=== PATIENT | male | born 1985 | race Caucasian/White ===

== ENCOUNTER 2017-03-09 12:41 | Emergency (ER) | payer MEDICAID ==
--- NOTE | 2017-03-09 13:59 | ED Physician Chart ---
Chief Complaint/HPI - Patient Information Date Seen:: 03/09/17 Time Seen:: 13:00 Chief Complaint:: left wrist pain History of Present Illness:: Present illness:: The patient states that he was in a previous state of health until one week ago when he helped a friend do yard work. There is no history of trauma insect sting or other acute problem until he woke up the next day with soreness in his left wrist. 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 Patient is in the emergency room today for evaluation just to find out what's going on. Patient has no other joint involvement, pertinent other medical history, no fever or chills or other pertinent review of systems. Allergies:: Allergies Allergy/AdvReac Type Severity Reaction Status Date / Time No Known Allergies Allergy Verified 03/09/17 12:55 Vitals:: Vital Signs - 8 hr 03/09/17 03/09/17 12:45 13:16 Temp 98.1 F 98.1 F HR 89 89 RR 16 16 BP 148/84 148/84 O2 Sat % 98 98 Review:: Nurse's Note Reviewed Review of Systems - Review of Systems General/Constitutional: No fever Other: Review of systems is otherwise unremarkable for that mentioned in the history of present illness. Past Medical History - Past Medical History Obtainable: Yes Past Medical History: No significant medical hx Family History: Heart disease Social History: Non Smoker, No Alcohol, No Drug Use, Single, Employed Surgical History: None Psychiatricy History: None Medication: None, Reviewed (nsaid) Family Medical History - Family Member Grandfather Hx Family Coronary Artery Disease: Yes Other Medical History: heart disease Physical Exam - Physical Examination General/Constitutional: Awake, Well-developed, well-nourished, Alert, No distress, Non-toxic appearing Eyes: Lids, conjuctiva normal, PERRL, EOMI Skin: No rash, No skin lesions Respiratory: Nl effort/Exclusion Extremities: Full ROM, normal strength in all extremities, No edema, Normal digits & nails (patient's findings today are limited to the left wrist. He is a [id number] patient and progressive wrists appear essentially symmetrical. There is no discoloration, increased palpable temperature change, deformity, or involvement of the elbow or shoulder of either upper extremity.Meetings are limited to palpable tenderness over the lateral distal forearm in the distribution of the thumb longus muscle and tendon as well as tenderness associated with extension of the left thumb against resistance. Patient has intact wrist flexion and extension, and brachial radialis function is intact. He has no effusion of the wrist.) ED Septic Shock - . Is Septic Shock (SBP<90, OR Lactate>4 mmol\L) present?: No - <6hrs of presentation: Vital Signs: Vital Signs - 8 hr 03/09/17 03/09/17 12:45 13:16 Temp 98.1 F 98.1 F HR 89 89 RR 16 16 BP 148/84 148/84 O2 Sat % 98 98 Reassessment (Disposition) - Reassessment Reassessment Condition:: Unchanged - Diagnosis Diagnosis:: Left thumb sprain - Aftercare/Follow up Instructions Aftercare/Follow-Up Instructions:: Counseled pt regarding lab results/diagnosis & need follow up, Refer to Discharge Instructions - Patient Disposition Discharge/Transfer:: Home ED Discharge Plan - Patient Disposition Admit/Discharge/Transfer: PT DISCHARGED HOME Condition at Disposition: Stable Instructions: Sprain Accepting Physician: Stan Landon [Active] - Robin Larson [Active] -
== END 2017-03-09 13:25 | disposition home or self-care (01) ==
LOC: ER 12:41
DX: S63.602A Unspecified sprain of left thumb, initial encounter (principal); X58.XXXA Exposure to other specified factors, initial encounter; Y93.89 Activity, other specified; Y92.89 Other specified places as the place of occurrence of the external cause; Y99.8 Other external cause status
CPT/HCPCS: Z7502